=== PATIENT | male | born 1965 | race Caucasian/White ===

== ENCOUNTER → 2020-11-29 16:24 | Outpatient (CLI) | payer OTHER, SELFPAY ==
--- NOTE | 2020-11-29 16:29 | RAD_ITS ---
STUDY: X-RAY - PELVIS AND LEFT HIP REASON FOR EXAM: Left lateral hip pain. TECHNIQUE: 2 views of the pelvis and hip. COMPARISON: None. FINDINGS: There are surgical clips in the scrotum. There is mild enthesopathy of the iliac wings bilaterally. Normal bilateral sacroiliac joints and visualized sacrum. Normal bilateral superior and inferior pubic rami. Normal pubic symphysis. Normal bilateral ischial tuberosities. Normal visualized femoral head. Normal acetabulum. There is mild joint space narrowing of the left hip joint. RAD/HIP, UNI W/ Pelvis 2-3 Views IMPRESSION: Mild left hip arthrosis. Electronically Signed: Abel Frost MD at 8:46 EDT Tel , Service support ,
== END ==
PROVIDERS: PCP Family Medicine; Referring Provider Family Medicine; Visit Provider Family Medicine
DX: M25.552 Pain in left hip (principal)
CPT/HCPCS: 73502